=== PATIENT | female | born 1960 | race African-American/Black ===

== ENCOUNTER 2019-11-13 14:07 | Emergency (ER) | payer BC ==
[~2019-11-13] VITALS: Ht 165.1 cm; Wt 90.0 kg
[2019-11-13] MEDS ORDERED: METF-815 PO (14:24)
[2019-11-13] MEDS ORDERED: NITROGLYCERIN 0.4MG TABLET SL SL STA (19:50)
[2019-11-13] MEDS ORDERED: MAGNESIUM/ALUMINUM HYDROXIDE/SIMETHICONE 30ML UDC PO ONE (20:00)
[2019-11-13] MEDS ORDERED: VISCOUS LIDOCAINE 2% 15 ML UDC PO ONE (20:00)
[2019-11-13] MEDS ORDERED: ASPIRIN 81MG TABLET PO ONE (20:00)
[2019-11-13 20:41] LABS: BASOPHILS % 0.9 % (0.0-2.0); EOSINOPHILS % 1.6 % (0.0-5.0); HEMATOCRIT. 41.3 % (36.0-48.0); HEMOGLOBIN. 14.1 g/dL (12.0-16.0); LYMPHOCYTES % 47.5 % (20.0-50.0); MEAN CORPUSCULAR HEMOGLOBIN 30.8 pg (28.0-32.0); MEAN CORPUSCULAR VOLUME 89.9 fL (81.0-99.0); MEAN PLATELET VOLUME 8.8 fl (7.4-10.4); MONOCYTES % 7.6 % (2.0-8.0); NEUTROPHILS % 42.4 % (40.0-76.0); PLATELET 298 x1000/uL (130-400); RED BLOOD CELL COUNT 4.59 mill/uL (4.2-5.4); RED CELL DISTRIBUTION WIDTH 13.5 % (11.6-14.6)
[2019-11-13 20:46] LABS: CHLORIDE 106 mEq/L (98-107)
[2019-11-13 22:30] VITALS: BP 121/76
== END 2019-11-13 22:57 | disposition home or self-care (01) ==
LOC: ER 14:07
DX: R07.89 Other chest pain (principal); E11.9 Type 2 diabetes mellitus without complications; Z79.84 Long term (current) use of oral hypoglycemic drugs
CPT/HCPCS: 36415; 71045; 80053; 83880; 84484; 85025; 93005; 99284; Z7610